=== PATIENT | male | born 1970 | race Caucasian/White ===

== ENCOUNTER 2018-08-06 10:39 | Emergency (ER) | payer OTHER ==
--- NOTE | 2018-08-06 11:13 | EDPHY ---
H & P Time Seen by Provider: 08/06/18 10:49 HPI/ROS: Chief complaint. Right leg infection HPI. 48-year-old male presents emergency department with right calf pain and swelling for 1 week. Denies injury. He feels he can see some pus under there. Has gradually increasing in size and increasing in pain. No fever. Denies methamphetamine use or IVDA. No fever. No chest pain no shortness of breath. No abdominal pain. 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 ENT, Mouth: Mucous membranes are moist. Respiratory: There are no retractions, lungs are clear to auscultation. Cardiovascular: Regular rate and rhythm. Tachycardia Gastrointestinal: Abdomen is soft and nontender, no masses, bowel sounds normal. Neurological: Awake and alert, sensory and motor exams grossly normal. Skin: Warm and dry, no rashes. Musculoskeletal: Neck is supple nontender. Extremities symmetrical, full range of motion. Large abscess posterior right calf with obvious purulence Psychiatric: Patient is oriented X 3, there is no agitation. Constitutional: Initial Vital Signs Temperature (C) 36.5 C 08/06/18 10:45 Heart Rate 143 H 08/06/18 10:45 Respiratory Rate 16 08/06/18 10:45 Blood Pressure 175/119 H 08/06/18 10:45 O2 Sat (%) 99 08/06/18 10:45 O2 Delivery Mode Room Air Allergies/Adverse Reactions: No Known Allergies Allergy (Unverified 08/06/18 10:44) Home Medications: Medication Instructions Recorded Amoxicillin 08/06/18 Bupropion HCl 08/06/18 Sulfamethox/Tmp 800/160 mg 1 tab PO BID #14 tab 08/06/18 [Bactrim Ds] Medical Decision Making Procedures: Incision and drainage of abscess. I infiltrated 1% lidocaine with epinephrine into the abscess cavity. Good anesthesia obtained. It is incised with a 11. Blade. Copious pus is expressed. The cavity is probed to break up loculations. It is irrigated. It is then bandage. Patient tolerates the procedure well IV vancomycin after cultures Septic workup ED Course/Re-evaluation: Patient's lactate is normal. Patient's glucose is elevated. We discussed treatment plan including importance of follow-up and further evaluation. structural engineering project manager helps the patient to get an appointment at [facility] in the next couple days. Patient and I discussed criteria for return and importance of the follow-up. He expresses understanding and agreement Differential Diagnosis: This is likely MRSA. No evidence for sepsis. - Data Points Laboratory Results: Laboratory Results 08/06/18 11:52 08/06/18 11:52 08/06/18 08/06/18 08/06/18 11:52 11:52 11:52 WBC 9.23 10^3/uL 10^3/uL (3.80-9.50) RBC 5.43 10^6/uL 10^6/uL (4.40-6.38) Hgb 15.6 g/dL g/dL (13.7-17.5) Hct 45.4 % % (40.0-51.0) MCV 83.6 fL fL (81.5-99.8) MCH 28.7 pg pg (27.9-34.1) MCHC 34.4 g/dL g/dL (32.4-36.7) RDW 12.6 % % (11.5-15.2) Plt Count 326 10^3/uL 10^3/uL (150-400) MPV 9.7 fL fL (8.7-11.7) Neut % (Auto) 69.2 % % (39.3-74.2) Lymph % (Auto) 22.9 % % (15.0-45.0) [place] % (Auto) 5.5 % % (4.5-13.0) Eos % (Auto) 1.7 % % (0.6-7.6) Baso % (Auto) 0.4 % % (0.3-1.7) Nucleat RBC Rel Count 0.0 % % (0.0-0.2) Absolute Neuts (auto) 6.38 10^3/uL 10^3/uL (1.70-6.50) Absolute Lymphs (auto) 2.11 10^3/uL 10^3/uL (1.00-3.00) Absolute Monos (auto) 0.51 10^3/uL 10^3/uL (0.30-0.80) Absolute Eos (auto) 0.16 10^3/uL 10^3/uL (0.03-0.40) Absolute Basos (auto) 0.04 10^3/uL 10^3/uL (0.02-0.10) Absolute Nucleated RBC 0.00 10^3/uL 10^3/uL (0-0.01) Immature Gran % 0.3 % % (0.0-1.1) Immature Gran # 0.03 10^3/uL 10^3/uL (0.00-0.10) VBG Lactic Acid 1.8 mmol/L mmol/L (0.7-2.1) Sodium 135 mEq/L mEq/L (135-145) Potassium 4.3 mEq/L mEq/L (3.5-5.2) Chloride 96 mEq/L L mEq/L (97-110) Carbon Dioxide 25 mEq/l mEq/l (22-31) Anion Gap 14 mEq/L mEq/L (6-14) BUN 8 mg/dL mg/dL (7-23) Creatinine 0.5 mg/dL L mg/dL (0.7-1.3) Estimated GFR > 60 Glucose 359 mg/dL H mg/dL (70-100) Calcium 10.0 mg/dL mg/dL (8.5-10.4) Microbiology Results: MICROBIOLOGY 08/06/18 12:00 Leg - Swab Gram Stain - Final Medications Given: Discontinued Medications Sodium Chloride (Ns) 1,000 mls @ 0 mls/hr IV EDNOW ONE; Wide Open PRN Reason: Protocol Stop: 08/06/18 11:22 Last Admin: 08/06/18 11:57 Dose: 1,000 mls Vancomycin/Sodium Chloride (Vancomycin 1 Gm (Premix)) 250 mls @ 250 mls/hr IV EDNOW ONE PRN Reason: Protocol Stop: 08/06/18 12:19 Last Admin: 08/06/18 11:56 Dose: 250 mls Departure - Departure Disposition: Home, Routine, Self-Care Clinical Impression: Abscess, Elevated blood sugar Condition: Good Instructions: Abscess (ED), Nondiabetic Hyperglycemia (ED) Additional Instructions: Keep leg elevated as much as possible next 24 hr. Heat to the back of the calf. Bactrim twice daily as antibiotic Return for worsening symptoms including increased pain, redness, fever. Recheck in 2 days if not improving You're blood sugar is high today. Please follow-up in the next few days for further blood sugar evaluation Referrals: NONE *PRIMARY CARE P,. [Primary Care Provider] - As per Instructions Denis Moreira MD [Medical Doctor] - As per Instructions [facility] [Outside] - 2-3 days without fail Prescriptions: Sulfamethox/Tmp 800/160 mg [Bactrim Ds] 1 tab PO BID #14 tab
[2018-08-06] MEDS ORDERED: VANCOMYCIN HCL/NORMAL SALINE 250 ML IV ONE (11:20)
[2018-08-06] MEDS ORDERED: NS 1,000 ML IV ONE (11:21)
[2018-08-06 12:10] LABS: PLATELET COUNT 326 10^3/uL (150-400)
[2018-08-06 13:10] VITALS: BP 133/88
--- NOTE | 2018-08-06 16:08 | ASMTCMCOM ---
CM Note CM Note Notes: CM met with patient to confirm follow up plans and establishment of a PCP. 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 I discussed process for looking into whether patient qualifies for Medicaid vs. reduced cost health insurance through [facility] and provided patient with the information about self pay, [employer], and Medicaid application process. Patient is in agreement with follow up at [facility] in [place] and understands that he will have an initial $20 co-pay for his first visit if scheduled while uninsured. Patient tells me that this is not a problem. I have stressed the importance of follow up and offered to schedule an appointment for patient at this time. Patient would prefer to call and schedule himself and appears receptive to following through with potential insurance options as well. Patient reports that he sees a "private doctor" for his Suboxone therapy which he has been on for "many years". Patient reports that he pays a few hundred dollars every 3 months to receive his prescriptions, but does not have any lab work or other follow up for his MAT. I strongly encouraged patient to look into his options for Medicaid, etc., stressing that it would cover MAT with a PCP or approved clinic, as well as help him to establish affordable primary health care and follow up. Patient provided contact information for financial counselors to assist him further. I informed him that [facility] would help him with this process as well. Patient assures this CM that he will schedule an appointment with [facility] for next week and will look into his insurance options as well CM available for further needs, prn Date Signed: 08/06/2018 04:07 PM Electronically Signed By:Gisela Woo RN
== END 2018-08-06 13:44 | disposition home or self-care (01) ==
PROC: 0H9KXZZ Drainage of Right Lower Leg Skin, External Approach (ICD-10-PCS; principal; 2018-08-06)
DX: L02.415 Cutaneous abscess of right lower limb (principal); R73.9 Hyperglycemia, unspecified
CPT/HCPCS: 96365; J3370